=== PATIENT | male | born 1980 | race Caucasian/White ===

== ENCOUNTER 2018-01-06 12:38 | Outpatient (RCR) | payer OTHER | END 2018-01-06 14:53 | disposition home or self-care (01) | PROVIDERS: ATTEND Neuromusculoskeletal Medicine, Sports Medicine | DX: Z02.71 Encounter for disability determination (principal) ==

== ENCOUNTER → 2018-01-06 | Outpatient (CLI) | payer OTHER ==
--- NOTE | 2018-01-06 13:14 | Diagnostic Imaging Report ---
INDICATION: History of scoliosis. Six views were obtained. FINDINGS: The alignment of the thoracic and lumbar spine is essentially normal. There are postsurgical changes of an L5-S1 fusion. Vertebral body heights are well maintained. There are no vertebral anomalies. IMPRESSION: No evidence of significant thoracolumbar scoliosis. Previous postsurgical changes of an L5-S1 fusion. Dictated by: Dictated on workstation # [id number]
== END ==
LOC: RAD 11:19
PROVIDERS: ATTEND Neuromusculoskeletal Medicine, Sports Medicine
DX: Z02.71 Encounter for disability determination (principal); Z98.1 Arthrodesis status
CPT/HCPCS: 72082